=== PATIENT | female | born 1985 | race Caucasian/White ===

== ENCOUNTER 2022-11-17 09:24 | Emergency (ER) | payer OTHER, SELFPAY ==
[2022-11-17 09:44] VITALS: BP 136/112; PULSE 87; RESP 16; TEMP 36.2; O2SAT 98
[2022-11-17 09:46] VITALS: BP 136/112; PULSE 87; RESP 16; TEMP 36.2; O2SAT 98
--- NOTE | 2022-11-17 10:38 | ED.FEMALEGU ---
HPI - Female Genitourinary General Chief complaint: Urogenital-Female Stated complaint: uti Time Seen by Provider: 11/17/22 10:38 Source: patient, RN notes reviewed and old records reviewed Mode of arrival: ambulatory Limitations: no limitations History of Present Illness HPI Narrative: 37 year old female presents to [facility] care with complaints of lower demetrio pain, urinary frequency,urinary tract symptoms of cramping discomfort with urination, pressure cramping in groin for the past 2 days. Patient reports that she has been taking cranberry pills and has increased her water intact. Patient denies any vaginal discharge or itching, denies any concern for STD exposure. Patient denies any known fevers,chills or sweat, denies any nausea or vomiting. MD elicited complaint: UTI Onset (ago): day(s) (2) Severity scale (1-10): 4 Quality of pain: cramping and aching Related Data Home Medications Medication Instructions Recorded Confirmed escitalopram oxalate 10 mg tablet 15 mg PO DAILY 11/17/22 11/17/22 lamotrigine 25 mg tablet 50 mg PO DAILY 11/17/22 11/17/22 Allergies Allergy/AdvReac Type Severity Reaction Status Date / Time No Known Allergies Allergy Verified 11/17/22 09:44 Review of Systems Review of Systems: CONSTITUTIONAL: Denies fever, chills, or sweats. CARDIOVASCULAR: Denies chest pain, palpitations, or edema. RESPIRATORY: Denies cough or dyspnea. GASTROINTESTINAL: Denies abdominal pain, nausea, vomiting, or diarrhea. GENITOURINARY: Reports dysuria, frequency, urgency. Denies flank pain or hematuria,is on menses SKIN: Denies rash or itching. MUSCULOSKELETAL: Reports lumbar back pain or myalgia. Denies CVA tenderness NEUROLOGIC: Denies headache All systems reviewed & are unremarkable except as noted in HPI and below PMFSH Past Medical History Medical History Anxiety and depression Social History Social History Smoking status: Current some day smoker Tobacco type: e-cigarettes/vaping Alcohol intake: never Living arrangements: with family Gender identity (if verbalized by the patient): Female Comments At time of signature, agree with nursing past medical, surgical, social and family history. There is no relevant family history pertinent to the presenting complaint Exam Narrative: GENERAL: Well-appearing, well-nourished, and in no acute distress. HEAD: Normocephalic, atraumatic. NECK: Supple.no lymphadenopathy CHEST: Clear to auscultation. No respiratory distress.SAO2 98% on room air HEART: Regular rate and rhythm. No murmur heard. Normal peripheral pulses. ABDOMEN: Soft, nontender to palpation, nondistended, normal active bowel sounds. No CVA tenderness, lumbar back pain cramping and pressure with urination,no burning EXTREMITIES: Normal range of motion. No edema. SKIN: Warm, dry, no rash. NEURO: No focal deficits. Alert and oriented x3. Course Course Emergency Course: Patient is aware of diagnosis, understands and agrees to treatment plan.? Anticipatory guidance given.? Patient agrees to follow-up as directed and is aware of reasons to seek care at the emergency department. Portions of this record may have been created with voice recognition software Level of Care: Express Care Visit Vital Signs Vital signs: Vital Signs Temperature 36.2 C L 11/17/22 09:44 Pulse Rate 87 11/17/22 09:44 Respiratory Rate 16 11/17/22 09:44 Blood Pressure 136/112 H 11/17/22 09:44 Pulse Oximetry 98 11/17/22 09:44 Oxygen Delivery Room Air 11/17/22 09:44 Temperature 36.2 C L 11/17/22 09:46 Pulse Rate 87 11/17/22 09:46 Respiratory Rate 16 11/17/22 09:46 Blood Pressure 136/112 H 11/17/22 09:46 Pulse Oximetry 98 11/17/22 09:46 Oxygen Delivery Room Air 11/17/22 09:46 MDM - Female Genitourinary MDM Narrative Medical decision making narrative: Exam findings and UA
== END 2022-11-17 10:59 | disposition home or self-care (01) ==
PROVIDERS: Emergency Provider Registered Nurse
DX: N39.0 Urinary tract infection, site not specified (principal); F17.290 Nicotine dependence, other tobacco product, uncomplicated
CPT/HCPCS: 81003; 87077; 87086; 87088; 87186; 99213; G0463

== ENCOUNTER 2024-01-12 09:38 | Emergency (ER) | payer SELFPAY ==
--- NOTE | 2024-01-12 09:44 | ED.URI ---
HPI - URI/Sore Throat General Chief Complaint: Upper Respiratory Infection Stated Complaint: SORE THROAT Time Seen by Provider: 01/12/24 09:58 Source: patient, RN notes reviewed and old records reviewed Mode of arrival: ambulatory Limitations: no limitations History of Present Illness HPI Narrative: 38 year old female who presents to [facility] care with complaint of 2 month duration of seasonal allergies bothering her and has been taking daily Zyrtec. For past 2 weeks she has been having some ear pressure, sore throat and nasal congestion. Patient reports that her throat is very sore and it hurts to swallow, has been taking Ibuprofen regularly with last dose at 0530 today. Patient reports that she lost her insurance and hasn't been to see her PMD. Patient reports that she hasn't been taking her Citalopram and Lamotrigine because she couldn't afford to see her PMD. Patient relayed information that committed suicide 6 months ago. MD elicited complaint: sore throat and other (ear pressure, sinus congestion and drainage) Onset (ago): week(s) (2 weeks sore throat increased sinus drainage and ear pressure) Consistency: constant Pain scale (0-10): 4 Able to tolerate fluids by mouth: Yes Exacerbating factors: swallowing Treatments prior to arrival: ibuprofen and other (zyrtec) Related Data Allergies Allergy/AdvReac Type Severity Reaction Status Date / Time No Known Allergies Allergy Verified 01/12/24 09:53 Review of Systems Review of Systems: CONSTITUTIONAL:Reports malaise,no chills, sweats, or known fever. EYES: Denies visual changes, redness, or discharge. ENT: Reports rhinorrhea, congestion, sinus pain, bilateral otalgia and positive for sore throat and painful swallowing. CARDIOVASCULAR: Denies chest pain, palpitations, or edema. RESPIRATORY: Reports no acute cough.? Denies dyspnea. GASTROINTESTINAL: Denies abdominal pain, nausea, vomiting, diarrhea SKIN: Denies rash or itching. MUSCULOSKELETAL: Denies myalgia. NEUROLOGIC: Denies headache. All systems reviewed & are unremarkable except as noted in HPI and below PMFSH Past Medical History Medical History Anxiety and depression Social History Social History Smoking status: Current some day smoker Tobacco type: e-cigarettes/vaping Alcohol intake: never Living arrangements: with family Gender identity (if verbalized by the patient): Female Comments At time of signature, agree with nursing past medical, surgical, social and family history. There is no relevant family history pertinent to the presenting complaint Exam Narrative: GENERAL: Well-appearing, well-nourished, obese and in no acute distress. HEAD: Normocephalic EYES: PERRLA, conjunctivae clear ENT: Nares clear, turbinates edematous and erythematous, clear discharge. Mucous membranes moist. TM pearly granados with dull light reflex bilaterally; no tragal tenderness. Oropharynx erythematous without lesions. Tonsils red enlarged and without exudate, no drooling, no hoarseness, no trismus, uvula midline red and swollen, post nasal drainage NECK: Supple. lymphadenopathy CHEST: Clear to auscultation, breath sounds equal. No wheezing, rhonchi, rales, or stridor. No respiratory distress, speaks in full sentences.SAO2 97% on room air HEART: Regular rate and rhythm. No murmur heard. SKIN: Warm, dry, no rash. NEURO: Alert and oriented x3. PSYCH: Normal mood and affect Course Course Emergency Course: Patient is aware of diagnosis, understands and agrees to treatment plan.? Anticipatory guidance given.? Patient agrees to follow-up as directed and is aware of reasons to seek care at the emergency department. Portions of this record may have been created with voice recognition software Level of Care: Express Care Visit Vital Signs Vital signs: Vital Signs Temperatu
[2024-01-12 09:50] VITALS: BP 132/85; PULSE 93; RESP 16; TEMP 36.4; O2SAT 97
== END 2024-01-12 10:19 | disposition home or self-care (01) ==
PROVIDERS: Emergency Provider Registered Nurse
DX: J32.9 Chronic sinusitis, unspecified (principal); J02.9 Acute pharyngitis, unspecified; F17.290 Nicotine dependence, other tobacco product, uncomplicated
CPT/HCPCS: 87880; 99213; G0463